=== PATIENT | female | born 1935 | race Caucasian/White ===

== ENCOUNTER 2018-10-15 17:25 | Emergency (ER) | payer OTHER ==
[~2018-10-15] VITALS: Ht 165.1 cm; Wt 77.6 kg
[2018-10-15] MEDS ORDERED: DIOVAN HCT 1601 EAC1 PO (17:33)
[2018-10-15] MEDS ORDERED: HYDROCHLOROTHIA25 MG PO (17:34)
[2018-10-15] MEDS ORDERED: CARDIZEM CD240 MG PO (17:34)
[2018-10-16] MEDS ORDERED: MIRALAX510 GM PO (06:54)
[2018-10-16] MEDS ORDERED: LEVSIN/SL0.125 MG SL (06:54)
== END 2018-10-16 07:10 | disposition home or self-care (01) ==
LOC: ER 17:25
DX: K59.09 Other constipation (principal); K57.30 Diverticulosis of large intestine without perforation or abscess without bleeding; R10.84 Generalized abdominal pain